=== PATIENT | male | born 1930 | race Caucasian/White ===

== ENCOUNTER → 2017-03-15 | Outpatient (CLI) | payer MEDICARE, OTHER, BC ==
[~2017-03-15] MED LIST: COUM5TAB PO; HYDR12.56; LEVA750T PO; [UNRECOGNIZED DRUG - OTHER]
[2017-03-15 09:51] LABS: BASOPHIL % 0.9 % (0.0-2.0); EOSINOPHIL # 0.2 TH/MM3 (0-0.4); EOSINOPHIL % 4.3 % (0.0-4.0); HEMO FLAGS DIFF FINAL; LYMPH % 24.7 % (9.0-44.0); LYMPHOCYTE # 1.3 TH/MM3 (1.0-4.8); MEAN CELL VOLUME 90.9 FL (80.0-100.0); MEAN CORPUSCULAR HEMOGLOBIN 30.1 PG (27.0-34.0); MEAN CORPUSCULAR HGB CONC 33.2 % (32.0-36.0); MONO % 14.2 % (0.0-8.0); NEUT % 55.9 % (16.0-70.0); PLATELET COUNT 172 TH/MM3 (150-450); RED BLOOD COUNT 4.29 MIL/MM3 (4.50-5.90); RED CELL DISTRIBUTION WIDTH 13.6 % (11.6-17.2); WHITE BLOOD COUNT 5.3 TH/MM3 (4.0-11.0)
[2017-03-15 10:16] LABS: ANION GAP 4 MEQ/L (5-15); BICARBONATE 28.5 MEQ/L (21.0-32.0); BLOOD UREA NITROGEN 34 MG/DL (7-18); CHLORIDE 106 MEQ/L (98-107); GLOMERULAR FILTRATION RATE 55 ML/MIN (>89); GLUCOSE,FASTING 93 MG/DL (74-99); POTASSIUM 4.2 MEQ/L (3.5-5.1); SODIUM (NA) 138 MEQ/L (136-145)
[2017-03-15 11:17] LABS: ALKALINE PHOSPHATASE 85 U/L (45-117); ALT (GPT) 19 U/L (12-78); AST (GOT) 19 U/L (15-37); HDL CHOLESTEROL 47.3 MG/DL (40.0-60.0); LDL CHOLESTEROL 105 MG/DL (0-99); TOTAL BILIRUBIN ADULT 0.6 MG/DL (0.2-1.0)
== END ==
LOC: PLAB 07:07
PROVIDERS: ATTEND Family Medicine
DX: I10 Essential (primary) hypertension (principal); E55.9 Vitamin D deficiency, unspecified
CPT/HCPCS: 36415; 80053; 80061; 82306; 84443; 85025

== ENCOUNTER → 2017-09-04 | Outpatient (CLI) | payer MEDICARE, OTHER, BC ==
[2017-09-04 10:36] LABS: HEMATOCRIT 38.2 % (39.0-51.0); HEMOGLOBIN 13.4 GM/DL (13.0-17.0); MEAN CELL VOLUME 90.7 FL (80.0-100.0); MEAN CORPUSCULAR HEMOGLOBIN 31.8 PG (27.0-34.0); MEAN CORPUSCULAR HGB CONC 35.1 % (32.0-36.0); MEAN PLATELET VOLUME 8.8 FL (7.0-11.0); PLATELET COUNT 167 TH/MM3 (150-450); RED BLOOD COUNT 4.21 MIL/MM3 (4.50-5.90); RED CELL DISTRIBUTION WIDTH 13.4 % (11.6-17.2); WHITE BLOOD COUNT 4.7 TH/MM3 (4.0-11.0)
[2017-09-04 10:43] LABS: ALBUMIN 3.8 GM/DL (3.4-5.0); AST (GOT) 19 U/L (15-37); BICARBONATE 29.7 MEQ/L (21.0-32.0); BLOOD UREA NITROGEN 15 MG/DL (7-18); CALCIUM 8.7 MG/DL (8.5-10.1); CHLORIDE 104 MEQ/L (98-107); CREATININE 1.11 MG/DL (0.60-1.30); GLOMERULAR FILTRATION RATE 63 ML/MIN (>89); GLUCOSE,FASTING 88 MG/DL (74-99); SODIUM (NA) 140 MEQ/L (136-145)
[2017-09-04 10:44] LABS: CHOLESTEROL 166 MG/DL (120-200)
[2017-09-04 10:48] LABS: ALKALINE PHOSPHATASE 80 U/L (45-117); ALT (GPT) 20 U/L (12-78); CHOLESTEROL/ HDL RATIO 3.94 RATIO; HDL CHOLESTEROL 42.1 MG/DL (40.0-60.0); LDL CHOLESTEROL 103 MG/DL (0-99); TOTAL BILIRUBIN ADULT 0.7 MG/DL (0.2-1.0); TRIGLYCERIDES 103 MG/DL (42-150)
== END ==
LOC: PLAB 06:55
PROVIDERS: ATTEND Family Medicine
DX: E78.5 Hyperlipidemia, unspecified (principal); E55.9 Vitamin D deficiency, unspecified
CPT/HCPCS: 36415; 80053; 80061; 82306; 85027

== ENCOUNTER 2018-05-19 02:58 | Observation (INO) ==
[2018-05-19 04:27] LABS: Baso % (Auto) 0.3 % (0.0-2.0); Eos % (Auto) 0.4 % (0.0-4.0); Hematocrit 40.5 % (39.0-51.0); Hemoglobin 13.6 gm/dL (13.0-17.0); Lymph # (Auto) 0.6 th/mm3 (1.0-4.8); Lymph % (Auto) 5.2 % (9.0-44.0); Mean Corpuscular HGB Conc 33.6 % (32.0-36.0); Mean Corpuscular Hemoglobin 31.1 pg (27.0-34.0); Mean Corpuscular Volume 92.6 fL (80.0-100.0); Mean Platelet Volume 9.1 fL (7.0-11.0); Mono # (Auto) 0.7 th/mm3 (0.0-0.9); Mono % (Auto) 6.2 % (0.0-8.0); Neut # (Auto) 10.5 th/mm3 (1.8-7.7); Neut % (Auto) 87.9 % (16.0-70.0); Platelet Count 154 th/mm3 (150-450); Red Blood Count 4.37 mil/mm3 (4.50-5.90); Red Cell Distribution Width 14.1 % (11.6-17.2); White Blood Count 11.9 th/mm3 (4.0-11.0)
--- NOTE | 2018-05-19 04:27 | XR ---
EXAM DATE: 05/19/2018 4:09 AM EST AGE/SEX: 87 years / Male INDICATIONS: Congestion and shortness of breath. CLINICAL DATA: This is the patient's initial encounter. Patient reports that signs and symptoms have been present for 1 day and indicates a pain score of 0/10. MEDICAL/SURGICAL HISTORY: . A-fib. None. COMPARISON: No prior exams available for comparison. FINDINGS: Mild right perihilar airspace disease. No significant effusion. No pneumothorax. Heart size within no rmal limits. CONCLUSION: Right perihilar airspace disease. Differential diagnosis includes mild pneumonia or aspiration. Electronically signed by: Tab Fuentes MD 05/19/2018 4:26 AM EST
[2018-05-19 04:42] LABS: Alanine Aminotransferase 29 U/L (12-78); Anion Gap 7 meq/L (5-15); Aspartate Aminotransferase 26 U/L (15-37); Blood Urea Nitrogen 20 mg/dL (7-18); Calcium 8.8 mg/dL (8.5-10.1); Carbon Dioxide 28.5 meq/L (21.0-32.0); Chloride 103 meq/L (98-107); Glomerular Filtration Rate 57 mL/min (>89); Glucose,Random 121 mg/dL (74-106); Potassium 3.8 meq/L (3.5-5.1); Sodium 138 meq/L (136-145)
[2018-05-19 04:46] LABS: Alkaline Phosphatase 101 U/L (45-117); Total Protein 7.7 g/dL (6.4-8.2)
[2018-05-19] MEDS ORDERED: Azithromycin Inj 500 MG in Sodium Chlor 0.9% Inj 250 ML IV.SIG ONE (05:13)
--- NOTE | 2018-05-19 05:24 | ED ---
HPI General Chief complaint: Chest Pain Stated complaint: Medical Time Seen by Provider: 05/19/18 03:44 Source: patient Mode of arrival: ambulatory Limitations: no limitations History of Present Illness HPI narrative: 87-year-old male came to the emergency room with history of cough and shortness of breath since yesterday. Patient says that today he started coughing up some blood. He is here with his who said that he was having some chills earlier today. Patient's temperature here was 99.2. Patient is otherwise a relatively healthy person. He has history of A. fib and is on Coumadin. Patient denies of any chest pain at any point during his illness. Patient recently went to visit his children and grandchildren and there were some sick kids in the family. Patient says that he received his pneumonia shot 3 weeks back. Patient is not a smoker. Patient is not on home oxygen. Related Data Home Medications Medication Instructions Recorded Confirmed Coumadin 5 mg PO DAILY 05/19/18 05/19/18 hydrochlorothiazide 12.5 mg PO DAILY 05/19/18 05/19/18 ramipril 10 mg PO DAILY 05/19/18 05/19/18 Previous Rx's Medication Instructions Recorded cefuroxime axetil 500 mg PO Q12H 5 Days #10 tab 05/20/18 Allergies Allergy/AdvReac Type Severity Reaction Status Date / Time No Known Allergies Allergy Uncoded 02/16/15 18:37 Review of Systems ROS: all other systems reviewed are negative [facility] Medical History Medical History A-fib (Acute) Social History Social History Substance History: No History of Abuse Second Hand Smoke Exposure: No Smoking Status: Never smoker How Often Do You Have a Drink Containing Alcohol: 2 to 4 times a month Recent Travel in [facility] within the Last 8 Weeks: No Recent Out of Country Travel within the Last 8 Weeks: No Immunization History Tetanus Immunization: >5 Years Exam Narrative Exam Narrative: GENERAL: Awake, alert, elderly, mild distress SKIN: Focused skin assessment warm/dry. HEAD: Atraumatic. Normocephalic. EYES: Pupils equal and round. No scleral icterus. No injection or drainage. ENT: No nasal bleeding or discharge. Mucous membranes pink and moist. NECK: Trachea midline. No JVD. CARDIOVASCULAR: Regular rate and rhythm. No murmur appreciated. RESPIRATORY: No accessory muscle use. Crackles in the right base. GASTROINTESTINAL: Abdomen soft, non-tender, nondistended. Hepatic and splenic margins not palpable. MUSCULOSKELETAL: No obvious deformities. No clubbing. No cyanosis. No edema. NEUROLOGICAL: Awake and alert. No obvious cranial nerve deficits. Motor grossly within normal limits. Normal speech. PSYCHIATRIC: Appropriate mood and affect; insight and judgment normal. Course Initial Documented Vital Signs Temperature 99.2 F 05/19/18 03:01 Pulse Rate 94 H 05/19/18 03:01 Respiratory Rate 20 05/19/18 03:01 Blood Pressure 158/77 H 05/19/18 03:01 Pulse Oximetry 92 L 05/19/18 03:01 Last Documented Vital Signs Temperature 98.3 F 05/20/18 08:44 Pulse Rate 82 05/20/18 08:44 Respiratory Rate 20 05/20/18 08:44 Blood Pressure 126/66 05/20/18 09:47 Pulse Oximetry 94 L 05/20/18 12:00 Medical Decision Making MDM Narrative Medical decision making narrative: 5:23 AM blood test results are back and patient has slight leukocytosis with left shift. Chest x-ray suggestive of right middle lobe infiltrate. I have ordered IV Rocephin and Zithromax and blood culture. Given his oxygen saturation upon arrival and age I decided to admit him to the hospital for IV antibiotics. Awaiting for the hospitalist to call back. Medical Screen Exam Complete: Yes Emergency Medical Condition: Yes Lab Data Result diagrams: 05/20/18 04:20 05/20/18 04:20 Lab Results 05/19/18 05/19/18 05/19/18 Range/Units 04:15 04:15 04:15 WBC 11.9 H (4.0-11.0) th/mm3 RBC 4.37 L (4.50-5.90) mil/mm3 Hgb 13.6 (13.0-17.0) gm/dL Hct 40.5 (39.0-51.0) % MCV 92.6 (80.0-100.0) fL MCH 31.1 (27.0-34.0) pg MCHC 33.6 (32.0-36.0) % RDW 14.1 (11.6-17.2) % Plt Count 154 (150-450) th/mm3 MPV 9.1 (7.0-11.0) fL Neut % (Auto) 87.9 H (16.0-70.0) % Lymph % (Auto) 5.2 L (9.0-44.0) % [place] % (Auto) 6.2 (0.0-8.0) % Eos % (Auto) 0.4 (0.0-4.0) % Baso % (Auto) 0.3 (0.0-2.0) % Neut # (Auto) 10.5 H (1.8-7.7) th/mm3 Lymph # (Auto) 0.6 L (1.0-4.8) th/mm3 [place] # (Auto) 0.7 (0.0-0.9) th/mm3 Eos # (Auto) 0.0 (0.0-0.4) th/mm3 Baso # (Auto) 0.0 (0.0-0.2) th/mm3 WBC Differential . Differential Comment Auto diff final PT (9.8-11.6) sec INR Ratio Sodium 138 (136-145) meq/L Potassium 3.8 (3.5-5.1) meq/L Chloride 103 (98-107) meq/L Carbon Dioxide 28.5 (21.0-32.0) meq/L Anion Gap 7 (5-15) meq/L BUN 20 H (7-18) mg/dL Creatinine 1.21 (0.60-1.30) mg/dL Estimated GFR 57 L (>89) mL/min Random Glucose 121 H (74-106) mg/dL Calcium 8.8 (8.5-10.1) mg/dL Total Bilirubin 1.5 H (0.2-1.0) mg/dL AST 26 (15-37) U/L ALT 29 (12-78) U/L Alkaline Phosphatase 101 (45-117) U/L Troponin I Less than 0.02 L (0.02-0.05) ng/mL B-Natriuretic Peptide 241 H (0-100) pg/mL Total Protein 7.7 (6.4-8.2) g/dL Albumin 4.0 (3.4-5.0) g/dL 05/19/18 05/19/18 05/19/18 Range/Units 05:30 10:45 17:33 WBC (4.0-11.0) th/mm3 RBC (4.50-5.90) mil/mm3 Hgb (13.0-17.0) gm/dL Hct (39.0-51.0) % MCV (80.0-100.0) fL MCH (27.0-34.0) pg MCHC (32.0-36.0) % RDW (11.6-17.2) % Plt Count (150-450) th/mm3 MPV (7.0-11.0) fL Neut % (Auto) (16.0-70.0) % Lymph % (Auto) (9.0-44.0) % [place] % (Auto) (0.0-8.0) % Eos % (Auto) (0.0-4.0) % Baso % (Auto) (0.0-2.0) % Neut # (Auto) (1.8-7.7) th/mm3 Lymph # (Auto) (1.0-4.8) th/mm3 [place] # (Auto) (0.0-0.9) th/mm3 Eos # (Auto) (0.0-0.4) th/mm3 Baso # (Auto) (0.0-0.2) th/mm3 WBC Differential Differential Comment PT 20.9 H (9.8-11.6) sec INR 2.1 Ratio Sodium (136-145) meq/L Potassium (3.5-5.1) meq/L Chloride (98-107) meq/L Carbon Dioxide (21.0-32.0) meq/L Anion Gap (5-15) meq/L BUN (7-18) mg/dL Creatinine (0.60-1.30) mg/dL Estimated GFR (>89) mL/min Random Glucose (74-106) mg/dL Calcium (8.5-10.1) mg/dL Total Bilirubin (0.2-1.0) mg/dL AST (15-37) U/L ALT (12-78) U/L Alkaline Phosphatase (45-117) U/L Troponin I 0.03 0.02 (0.02-0.05) ng/mL B-Natriuretic Peptide (0-100) pg/mL Total Protein (6.4-8.2) g/dL Albumin (3.4-5.0) g/dL 05/20/18 05/20/18 05/20/18 Range/Units 04:20 04:20 04:20 WBC 11.0 (4.0-11.0) th/mm3 RBC 3.56 L (4.50-5.90) mil/mm3 Hgb 11.2 L D (13.0-17.0) gm/dL Hct 32.2 L (39.0-51.0) % MCV 90.7 (80.0-100.0) fL MCH 31.5 (27.0-34.0) pg MCHC 34.8 (32.0-36.0) % RDW 13.9 (11.6-17.2) % Plt Count 125 L (150-450) th/mm3 MPV 8.9 (7.0-11.0) fL Neut % (Auto) 80.7 H (16.0-70.0) % Lymph % (Auto) 8.4 L (9.0-44.0) % [place] % (Auto) 9.6 H (0.0-8.0) % Eos % (Auto) 1.0 (0.0-4.0) % Baso % (Auto) 0.3 (0.0-2.0) % Neut # (Auto) 8.9 H (1.8-7.7) th/mm3 Lymph # (Auto) 0.9 L (1.0-4.8) th/mm3 [place] # (Auto) 1.1 H (0.0-0.9) th/mm3 Eos # (Auto) 0.1 (0.0-0.4) th/mm3 Baso # (Auto) 0.0 (0.0-0.2) th/mm3 WBC Differential . Differential Comment Auto diff final PT 16.3 H (9.8-11.6) sec INR 1.6 Ratio Sodium 138 (136-145) meq/L Potassium 3.6 (3.5-5.1) meq/L Chloride 103 (98-107) meq/L Carbon Dioxide 28.2 (21.0-32.0) meq/L Anion Gap 7 (5-15) meq/L BUN 25 H (7-18) mg/dL Creatinine 1.19 (0.60-1.30) mg/dL Estimated GFR 58 L (>89) mL/min Random Glucose 105 (74-106) mg/dL Calcium 8.3 L (8.5-10.1) mg/dL Total Bilirubin 1.3 H (0.2-1.0) mg/dL AST 23 (15-37) U/L ALT 18 (12-78) U/L Alkaline Phosphatase 73 (45-117) U/L Troponin I (0.02-0.05) ng/mL B-Natriuretic Peptide (0-100) pg/mL Total Protein 6.0 L D (6.4-8.2) g/dL Albumin 2.9 L D (3.4-5.0) g/dL Imaging Data Radiologist's impression: Chest X-Ray 05/19/18 03:53 CONCLUSION: Right perihilar airspace disease. Differential diagnosis includes mild pneumonia or aspiration. ECG Data Attestation: I personally reviewed and interpreted this ECG as follows: Interpretation: Twelve-lead EKG was reviewed by me. Atrial fibrillation, left axis deviation, right bundle branch block. Heart rate of 76 bpm. Discharge Plan Discharge Disposition Patient Disposition: 30 Still Patient Discharge Condition Condition: Stable Discharge Order Discharge Orders: Discharge Order (Routine); Ordered 05/20/18 Ordered By: Maureen Saleh Discharge Details Anticipated Discharge Date: 05/20/18 Discharge Comment: Ok to discharge if O2 sat stable on room air. Physicians Team ED Provider: Joel Garza Primary Care Provider: Alex Guardado Attending Provider: Luis Dimas Status ED Status: Left Department Discharge Information Discharge Date/Time: 05/19/18 09:06
[2018-05-19 05:54] LABS: INR 2.1 Ratio; Prothrombin Time 20.9 sec (9.8-11.6)
[2018-05-19] MEDS ORDERED: Acetaminophen 325 MG Tablet PO PRN (06:06)
[2018-05-19] MEDS ORDERED: Bisacodyl 10 MG Supp RECTAL PRN (06:06)
[2018-05-19] MEDS: Senna/Docusate Sodium 8.6/50 MG Tablet PO SCH ×2 (08:45→20:06)
--- NOTE | 2018-05-19 10:06 | P.HPIM ---
History of Present Illness Primary Care Physician: Alex Guardado MD Chief Complaint: cough History of Present Illness: 87 yo M with a h/o HTN, Atrial fibrillation who presented with cough and shortness of breath for 1 day.Patient is travelling from [place].Cough said to be productive of yellow sputum with blood staining. He had some fever and chills as well. No exertional symptoms. No rhinorrhea or nasal congestion. No associated joint pains or muscle pains.No change in micturition or bowel habits. ROS is negative except for lt arm tightness which he has been experiencing for 2 days and it has been nagging/annoying. He has no chest pain or exertional symptoms. On presentation patient had stable vital signs, labs showed mild leucocytosis of 11.9, bnp 200, mildly elevated glucose. CXR right perihilar airway disease could be pneumonia vs aspiration. Patient was started on Ceftriaxone/ Azithromycin for pneumonia. Review of Systems Review of Systems: all other systems reviewed are negative [facility] Medical History Medical History A-fib (Acute) Social History Social History Substance History: No History of Abuse Second Hand Smoke Exposure: No Smoking Status: Never smoker How Often Do You Have a Drink Containing Alcohol: 2 to 4 times a month Recent Travel in [facility] [place] within the Last 8 Weeks: No Recent Out of Country Travel within the Last 8 Weeks: No Immunization History Tetanus Immunization: >5 Years Medications and Allergies Allergies Allergy/AdvReac Type Severity Reaction Status Date / Time No Known Allergies Allergy Uncoded 02/16/15 18:37 Home Medications Medication Instructions Recorded Confirmed Type Coumadin 5 mg PO DAILY 05/19/18 05/19/18 History hydrochlorothiazide 12.5 mg PO DAILY 05/19/18 05/19/18 History ramipril 10 mg PO DAILY 05/19/18 05/19/18 History Active Medications: Active Medications Acetaminophen (Tylenol) 650 mg PO Q4H PRN PRN Reason: Temp > 100.4 Al Hydroxide/Mg Hydroxide (Milk Of Magnrody Liq) 30 ml PO Q12H PRN PRN Reason: Mild Constipation Albuterol (Duoneb Neb (Prn)) 1 ampul NEB Q4HR NEB PRN PRN Reason: SOB/WHEEZING Bisacodyl (Dulcolax Supp) 10 mg RECTAL DAILY PRN PRN Reason: SEVERE CONSITIPATION Azithromycin 500 mg/ Sodium (Chloride) 250 mls @ 250 mls/hr IV.SIG Q24H CRISTO Ceftriaxone Sodium 1,000 mg/ (Sodium Chloride) 100 mls @ 200 mls/hr IV.SIG Q24H C[facility]STO Lactulose (Lactulose Liq) 30 ml PO DAILY PRN PRN Reason: SEVERE CONSITIPATION Ondansetron HCl (Zofran Inj) 4 mg IV.PUSH Q6H PRN PRN Reason: NAUSEA OR VOMITING Senna/Docusate Sodium (Debra-Colace) 1 tab PO BID CRISTO Last Admin: 05/19/18 08:45 Dose: Not Given Sennosides (Senokot) 17.2 mg PO Q12H PRN PRN Reason: Moderate Constipation Sodium Chloride (Ns Flush) 2 ml IV.FLUSH UNSCH PRN PRN Reason: FLUSH AFTER USING IV ACCESS Physical Exam Vital signs: Last Vital Signs Temp 99.2 F 05/19/18 03:01 Pulse 84 05/19/18 07:35 Resp 22 05/19/18 07:35 BP 121/59 L 05/19/18 07:35 Pulse Ox 98 05/19/18 07:35 Intake & Output 05/17/18 05/18/18 05/19/18 05/20/18 06:59 06:59 06:59 06:59 Intake Total 350 / 350 Output Total 300 / 300 Balance 50 / 50 Weight 79.379 kg 94.347 kg Narrative: GENERAL:pleasant elderly man in no distress,well developed and nourished. HEENT:not pale,anicteric,moist oral mucous membranes. CARDIOVASCULAR: Regular rate and rhythm without murmurs, gallops, or rubs. RESPIRATORY: Clear to auscultation. Breath sounds equal bilaterally. No wheezes , rales, or rhonchi. GASTROINTESTINAL: Abdomen soft, non-tender, nondistended. Normal active bowel sounds MUSCULOSKELETAL: Extremities without clubbing, cyanosis, or edema.peripheral pulses 2+. NEURO: Alert & Oriented x4 to person, place, time, situation. Moves all ext x4 Results Labs CBC & Chem 7: 05/19/18 04:15 05/19/18 04:15 Imaging Impressions Chest X-Ray 05/19/18 03:53 CONCLUSION: Right perihilar airspace disease. Differential diagnosis includes mild pneumonia or aspiration. Caprini VTE Risk Assessment Caprini VTE Risk Assessment: No/Low Risk (score <= 1) Caprini Risk Assessment Model: Point Value = 1 Point Value = 2 Point Value = 3 Point Value = 5 Age 41-60 Minor surgery BMI > 25 kg/m2 Swollen legs Varicose veins or History of unexplained or recurrent spontaneous Oral contraceptives or hormone replacement Sepsis (< 1 month) Serious lung disease, including pneumonia (< 1 month) Abnormal pulmonary function Acute myocardial infarction Congestive heart failure (< 1 month) History of inflammatory bowel disease Medical patient at bed rest Age 61-74 Arthroscopic surgery Major open surgery (> 45 min) Laparoscopic surgery (> 45 min) Malignancy Confined to bed (> 72 hours) Immobilizing plaster cast Central venous access Age >= 75 History of VTE Family history of VTE Factor V Leiden Prothrombin [id number] Lupus anticoagulant Anticardiolipin antibodies Elevated serum homocysteine Heparin-induced thrombocytopenia Other congenital or acquired thrombophilia Stroke (< 1 month) Elective arthroplasty Hip, pelvis, or leg fracture Acute spinal cord injury (< 1 month) Prophylaxis Regimen: Total Risk Factor Score Risk Level Prophylaxis Regimen 0-1 Low Early ambulation 2 Moderate Order ONE of the following: *Sequential Compression Device (SCD) *Heparin 5000 units SQ BID 3-4 Higher Order ONE of the following medications: *Heparin 5000 units SQ TID *Enoxaparin/Lovenox 40 mg SQ daily (WT < 150 kg, CrCl > 30 mL/min) *Enoxaparin/Lovenox 30 mg SQ daily (WT < 150 kg, CrCl > 10-29 mL/min) *Enoxaparin/Lovenox 30 mg SQ BID (WT < 150 kg, CrCl > 30 mL/min) AND/OR *Sequential Compression Device (SCD) 5 or more Highest Order ONE of the following medications: *Heparin 5000 units SQ TID (Preferred with Epidurals) *Enoxaparin/Lovenox 40 mg SQ daily (WT < 150 kg, CrCl > 30 mL/min) *Enoxaparin/Lovenox 30 mg SQ daily (WT < 150 kg, CrCl > 10-29 mL/min) *Enoxaparin/Lovenox 30 mg SQ BID (WT < 150 kg, CrCl > 30 mL/min) AND *Sequential Compression Device (SCD) Assessment and Plan Plan 87 yo m with h/o HTN and Atrial fibrillation on anticoagulation presenting with cough and shortness of breath, found to have a pneumonia. 1.Community acquired pneumonia- --continue on Ceftriaxone/Azithromycin, prn supplemental Oxygen to keep SPO2>92% , encourage incentive spirometry. mild blood staining in sputum in the setting of therapeutic anticoagulation. --check sputum cultures, follow up blood cultures. 2. Left arm tightness--for 2 days,no other associated symptoms. no exertional symptoms. no chest pain. initial troponin negative. Given patient's age, this may be an atypical presentation, can obtain stress test for further evaluation. 3.HTN-BP within acceptable limits. Continue usual medication. 4.Mildly elevated glucose in prediabetic range--monitor clinically. 5.H/o Atrial fibrillation--he is rate controlled at present and anticoagulated on Coumadin, continue as prescribed. H&P: Quality VTE Deep Vein Thrombosis/Pulmonary Embolism Present on Admission: No
--- NOTE | 2018-05-19 14:00 | ECG ---
Date Performed: 05/19/2018 Time Performed: 04:11:25 PTAGE: 87 years EKG: ATRIAL FIBRILLATION RIGHT BUNDLE BRANCH BLOCK ST DEPRESSION, CONSIDER SUBENDOCARDIAL INJURY ABNORMAL ECG Since the PREVIOUS TRACING , no significant change noted PREVIOUS TRACIN02/16/2015 18.25 DOCTOR: Ivan Hernandez Interpretating Date/Time 05/19/2018 13:58:14
[2018-05-19 19:38] VITALS: RESP 20
[2018-05-20 04:44] LABS: Baso % (Auto) 0.3 % (0.0-2.0); Eos # (Auto) 0.1 th/mm3 (0.0-0.4); Hematocrit 32.2 % (39.0-51.0); Hemoglobin 11.2 gm/dL (13.0-17.0); Lymph # (Auto) 0.9 th/mm3 (1.0-4.8); Lymph % (Auto) 8.4 % (9.0-44.0); Mean Corpuscular HGB Conc 34.8 % (32.0-36.0); Mean Corpuscular Hemoglobin 31.5 pg (27.0-34.0); Mean Corpuscular Volume 90.7 fL (80.0-100.0); Mean Platelet Volume 8.9 fL (7.0-11.0); Mono # (Auto) 1.1 th/mm3 (0.0-0.9); Mono % (Auto) 9.6 % (0.0-8.0); Neut # (Auto) 8.9 th/mm3 (1.8-7.7); Neut % (Auto) 80.7 % (16.0-70.0); Platelet Count 125 th/mm3 (150-450); Red Blood Count 3.56 mil/mm3 (4.50-5.90); Red Cell Distribution Width 13.9 % (11.6-17.2)
[2018-05-20 04:53] LABS: INR 1.6 Ratio; Prothrombin Time 16.3 sec (9.8-11.6)
[2018-05-20 05:14] LABS: Albumin 2.9 g/dL (3.4-5.0); Anion Gap 7 meq/L (5-15); Aspartate Aminotransferase 23 U/L (15-37); Blood Urea Nitrogen 25 mg/dL (7-18); Calcium 8.3 mg/dL (8.5-10.1); Carbon Dioxide 28.2 meq/L (21.0-32.0); Chloride 103 meq/L (98-107); Glomerular Filtration Rate 58 mL/min (>89); Glucose,Random 105 mg/dL (74-106); Potassium 3.6 meq/L (3.5-5.1); Sodium 138 meq/L (136-145)
[2018-05-20 05:17] LABS: Alanine Aminotransferase 18 U/L (12-78); Alkaline Phosphatase 73 U/L (45-117)
[2018-05-20] MEDS ORDERED: Azithromycin Inj 500 MG in Sodium Chlor 0.9% Inj 250 ML IV.SIG SCH (07:00)
[2018-05-20] MEDS: Senna/Docusate Sodium 8.6/50 MG Tablet PO SCH (08:11)
[2018-05-20 08:45] VITALS: PULSE 82; TEMP 98.3
--- NOTE | 2018-05-20 08:54 | P.PN ---
Subjective Interval history: Follow-up for pneumonia. Patient reports feeling much better today. He states the "hacking" is much improved, although still occasionally coughing up some yellow sputum. He also reports intranasal irritation secondary to the oxygen with occasional bloody streaks in his nasal drainage. He denies any chest pain or shortness of breath. He states the left arm tightness was more of a soreness in his upper arm only. He states that arm has bothered him since he got his pneumonia vaccine. He states the arm pain has now completely resolved today. Denies any fevers or chills. He states he has been ambulating without difficulty. He has no other medical complaints at this time. He discussed with his , and he would like to go home today. Physical Exam Vital signs: Vital Signs 05/19/18 09:30 05/19/18 12:00 05/19/18 16:00 Temperature 98.3 F 99.3 F Pulse Rate 69 70 72 Respiratory Rate 18 18 Blood Pressure 131/65 145/66 H Pulse Oximetry 96 96 05/19/18 17:00 05/19/18 19:36 05/19/18 20:05 Temperature 99.3 F Pulse Rate 70 73 68 Respiratory Rate 20 Blood Pressure 132/61 Pulse Oximetry 96 05/20/18 00:00 05/20/18 04:00 05/20/18 08:44 Temperature 99.5 F 98.9 F 98.3 F Pulse Rate 66 63 82 Respiratory Rate 20 20 20 Blood Pressure 125/58 L 110/58 L 170/74 H Pulse Oximetry 95 96 99 Intake & Output 05/19/18 05/20/18 05/20/18 18:59 06:59 18:59 Intake Total 350 / 350 350 / 350 Output Total 300 / 300 Balance 50 / 50 350 / 350 Weight 94.347 kg Intake: IV 350 / 350 350 / 350 Azithromycin Inj 500 MG In NS 250 / 250 250 / 250 Inj 250 ML @ 250 mls/hr IV.SIG Q24H CRISTO Rx#:[id number] Rocephin Inj 1,000 MG In NS Inj 100 / 100 100 / 100 100 ML @ 200 mls/hr IV.SIG Q24H CRISTO Rx#:[id number] Output: Urine 300 / 300 Other: Date of Last Bowel Movement 05/19/18 05/19/18 Weight On Admission 94.347 kg Narrative: GENERAL: Well-nourished, well-developed very pleasant elderly male patient in [facility]. SKIN: Warm and dry. No rash. HEENT: Normocephalic. Atraumatic. Pupils equal and round. Mucous membranes pink and moist. CARDIOVASCULAR: Regular rate and rhythm. No murmur appreciated. RESPIRATORY: No accessory muscle use. Clear to auscultation. Breath sounds equal bilaterally. GASTROINTESTINAL: Abdomen soft, non-tender, nondistended. Normoactive bowel sounds x4. MUSCULOSKELETAL: No obvious deformities. Extremities without clubbing, cyanosis , or edema. NEUROLOGICAL: Awake and alert. No obvious cranial nerve deficits. Motor grossly within normal limits. Moving all extremities spontaneously. Normal speech. PSYCHIATRIC: Appropriate mood and affect; insight and judgment normal. Results - Labs CBC & Chem 7: 05/20/18 04:20 05/20/18 04:20 Laboratory Results - last 24 hr 05/19/18 05/19/18 05/20/18 10:45 17:33 04:20 WBC 11.0 RBC 3.56 L Hgb 11.2 L D Hct 32.2 L MCV 90.7 MCH 31.5 MCHC 34.8 RDW 13.9 Plt Count 125 L MPV 8.9 Neut % (Auto) 80.7 H Lymph % (Auto) 8.4 L [place] % (Auto) 9.6 H Eos % (Auto) 1.0 Baso % (Auto) 0.3 Neut # (Auto) 8.9 H Lymph # (Auto) 0.9 L [place] # (Auto) 1.1 H Eos # (Auto) 0.1 Baso # (Auto) 0.0 WBC Differential . Differential Comment Auto diff final PT INR Sodium Potassium Chloride Carbon Dioxide Anion Gap BUN Creatinine Estimated GFR Random Glucose Calcium Total Bilirubin AST ALT Alkaline Phosphatase Troponin I 0.03 0.02 Total Protein Albumin 05/20/18 05/20/18 04:20 04:20 WBC RBC Hgb Hct MCV MCH MCHC RDW Plt Count MPV Neut % (Auto) Lymph % (Auto) [place] % (Auto) Eos % (Auto) Baso % (Auto) Neut # (Auto) Lymph # (Auto) [place] # (Auto) Eos # (Auto) Baso # (Auto) WBC Differential Differential Comment PT 16.3 H INR 1.6 Sodium 138 Potassium 3.6 Chloride 103 Carbon Dioxide 28.2 Anion Gap 7 BUN 25 H Creatinine 1.19 Estimated GFR 58 L Random Glucose 105 Calcium 8.3 L Total Bilirubin 1.3 H AST 23 ALT 18 Alkaline Phosphatase 73 Troponin I Total Protein 6.0 L D Albumin 2.9 L D Microbiology 05/19/18 09:48 Sputum - Expectorated Sputum Gram Stain - Final - Imaging Chest X-Ray 05/19/18 03:53 CONCLUSION: Right perihilar airspace disease. Differential diagnosis includes mild pneumonia or aspiration. Assessment and Plan - Plan 87 yo m with h/o HTN and Atrial fibrillation on anticoagulation presenting with cough and shortness of breath, found to have a pneumonia. Community acquired pneumonia: mild leukocytosis WBC 11.9, patient with purulent productive cough -CXR reviewed, shows right perihilar airspace disease, consistent with pneumonia -continue on Ceftriaxone/Azithromycin -prn supplemental Oxygen to keep SPO2>92% -encouraged incentive spirometry. -mild blood staining in sputum in the setting of therapeutic anticoagulation , nasal mucosa irritated likely from oxygen -sputum cultures and blood cultures pending -patient much improved, will wean off oxygen today, and d/c home on po abx Left arm tightness: suspect musculoskeletal, pain limited to proximal humerus/ deltoid area, now completely resolved. No chest pain. -ACS ruled out with negative serial cardiac enzymes x3 -pains resolved -patient follows closely with his vp global Dr. Diaz, recommend outpatient f/up HTN-BP within acceptable limits. -Continue home meds H/o Atrial fibrillation: rate controlled at present and anticoagulated on Coumadin -continue home meds DVT prophylaxis: On Coumadin Discharge Planning: Discharge patient to home Condition on discharge: Stable Heart Healthy Diet as tolerated Ad Emma activity Rx written: Ceftin 500mg bid x5days, Azithro 500mg qd x3days Follow-up with primary care physician
[2018-05-20 09:48] VITALS: BP 126/66
[2018-05-20 12:37] VITALS: O2SAT 94
== END 2018-05-20 12:19 | disposition home or self-care (01) ==
LOC: NEPC 02:58 → NEDA 02:58 → NEPFCDU 09:00
PROVIDERS: ADMIT Hospitalist; ATTEND Hospitalist